=== PATIENT | female | born 1985 | race Caucasian/White ===

== ENCOUNTER 2016-05-03 10:56 | Emergency (ER) | payer BC ==
[2016-05-03 11:55] VITALS: BP 99/69
--- NOTE | 2016-05-03 12:36 | UC ---
Dizzy HPI HPI Summary: "Room spinning sensation when patient changes from a sitting to standing position, feels that the room is moving. Has experienced vertigo once in the past, feels nauseated when she experiences this sensation. Denies feeling light- headed. - History Of Current Complaint Chief Complaint: UCGeneralIllness Stated Complaint: DIZZY WHEN MOVING HEAD Time Seen by Provider: 05/03/16 12:19 Hx Obtained From: Patient Hx Last Menstrual Period: 04/20/16 ?: No Onset/Duration: Sudden Onset Timing: Constant Severity Initially: Mild Severity Currently: None Character: Head Spinning, Room Spinning, Dizzy Aggravating Factor(s): Position Change, Change In Head Position Alleviating Factor(s): Rest, Turning Head Associated Signs And Symptoms: Positive: Nausea, Vomiting, Unsteady Gait. Negative: Tinnitus, Chest Pain, SOB, Palpitations, Visual Changes - Risk Factors Cardiac Risk Factors: Negative CVA Risk Factor: Negative - Allergies/Home Medications Allergies/Adverse Reactions: Allergies Allergy/AdvReac Type Severity Reaction Status Date / Time No Known Allergies Allergy Verified 05/03/16 11:55 PMH/Surg Hx/FS Hx/Imm Hx Previously Healthy: Yes Endocrine History Of: Denies: Diabetes, Thyroid Disease, Hyperthyroidism, Hypothyroidism, Dyslipidemia Cardiovascular History Of: Denies: Cardiac Disorders, Hypertension, Pacemaker/ICD, Myocardial Infarction , Congestive Heart Failure, Atrial Fibrillation, Deep Vein Thrombosis, Bleeding Disorders Respiratory History Of: Denies: COPD, Asthma, Bronchitis, Pneumonia, Pulmonary Embolism GI/ History Of: Denies: Gastroesophageal Reflux, Ulcer, Gastrointestinal Bleed, Gall Bladder Disease, Kidney Stones, Diverticulitis, Renal Disease, Urosepsis Neurological History Of: Denies: TIA, CVA, Dementia, Seizures, Migraine Psychological History Of: Denies: Anxiety, Depression, Bipolar Disorder, Schizophrenia, Post Traumatic Stress Disorder - Surgical History Surgical History: None - Family History Known Family History: Positive: Diabetes - Paternal grandfather - Social History Occupation: Employed Full-time - [employer] Lives: With Family Alcohol Use: None Substance Use Type: None Smoking Status (MU): Never Smoked Tobacco Have You Smoked in the Last Year: No Review of Systems Constitutional: Negative Skin: Negative ENT: Negative Respiratory: Negative Cardiovascular: Negative Gastrointestinal: Negative Genitourinary: Negative Motor: Negative Musculoskeletal: Negative Neurological: Other - Positional vertigo Psychological: Negative All Other Systems Reviewed And Are Negative: Yes Physical Exam Triage Information Reviewed: Yes Appearance: Well-Appearing Vital Signs: Initial Vital Signs Temp 98.2 F 05/03/16 11:52 Pulse 59 05/03/16 11:52 Resp 14 05/03/16 11:52 BP 99/69 05/03/16 11:52 Pulse Ox 100 05/03/16 11:52 Vital Signs Reviewed: Yes Eye Exam: Normal ENT: Positive: Hearing grossly normal, Pharynx normal, TMs normal, Other: - Nystagmus induced with peripheral extraoccular movements, resolved when patient looks forward. Negative: Nasal congestion, Nasal drainage Neck exam: Normal Neck: Positive: Supple, Nontender, No Lymphadenopathy Respiratory: Positive: Chest non-tender, Lungs clear, Normal breath sounds Cardiovascular Exam: Normal Cardiovascular: Positive: RRR, No Murmur, Pulses Normal, Brisk Capillary Refill Abdomen Description: Positive: Nontender, No Organomegaly, Soft Bowel Sounds: Positive: Present Musculoskeletal Exam: Normal Musculoskeletal: Positive: Strength Intact, ROM Intact Neurological: Positive: Alert, Other: - Positive [place]omberg Psychological Exam: Normal Skin Exam: Normal Dizzy Course/Dx - Course Course Of Treatment: As discussed, seek immediate medical attention for any red flag symptoms - Differential Dx/Diagnosis Provider Diagnoses: Benign Paroxysmal Positional Veritigo Discharge - Discharge Plan Condition: Stable Disposition: HOME Prescriptions: Meclizine HCl [Meclizine 25] 25 mg PO Q6HR #20 tab Patient Education Materials: Benign Paroxysmal Positional Vertigo (ED) Forms: *Work Release
== END 2016-05-03 12:42 | disposition home or self-care (01) ==
LOC: UCEAST 10:56
DX: H81.10 Benign paroxysmal vertigo, unspecified ear (principal); R11.0 Nausea
CPT/HCPCS: 99212; G0463

== ENCOUNTER 2016-07-06 10:53 | Emergency (ER) | payer BC ==
[2016-07-06 11:33] VITALS: BP 108/63
--- NOTE | 2016-07-06 11:49 | UC ---
UC General HPI - HPI Summary HPI Summary: Patient has had sore thraot, fever, body aches, back aches, joints hurt all over for the past 2 days. - History of Current Complaint Chief Complaint: UCRespiratory Stated Complaint: SORE THROAT FEVER Time Seen by Provider: 07/06/16 11:35 Hx Obtained From: Patient Onset/Duration: Sudden Onset, Lasting Days Timing: Constant Onset Severity: Moderate Current Severity: Severe Associated Signs & Symptoms: Positive: Back Pain, Cough, Fever, Headache, Other - joint pain - Allergy/Home Medications Allergies/Adverse Reactions: Allergies Allergy/AdvReac Type Severity Reaction Status Date / Time No Known Allergies Allergy Verified 07/06/16 11:28 PMH/Surg Hx/FS Hx/Imm Hx Previously Healthy: Yes Endocrine History Of: Denies: Diabetes, Thyroid Disease, Hyperthyroidism, Hypothyroidism, Dyslipidemia Cardiovascular History Of: Denies: Cardiac Disorders, Hypertension, Pacemaker/ICD, Myocardial Infarction , Congestive Heart Failure, Atrial Fibrillation, Deep Vein Thrombosis, Bleeding Disorders Respiratory History Of: Denies: COPD, Asthma, Bronchitis, Pneumonia, Pulmonary Embolism GI/ History Of: Denies: Gastroesophageal Reflux, Ulcer, Gastrointestinal Bleed, Gall Bladder Disease, Kidney Stones, Diverticulitis, Renal Disease, Urosepsis Neurological History Of: Denies: TIA, CVA, Dementia, Seizures, Migraine Psychological History Of: Denies: Anxiety, Depression, Bipolar Disorder, Schizophrenia, Post Traumatic Stress Disorder - Surgical History Surgical History: None - Family History Known Family History: Positive: Diabetes - Paternal grandfather - Social History Alcohol Use: None Substance Use Type: None Smoking Status (MU): Never Smoked Tobacco Have You Smoked in the Last Year: No - Immunization History Most Recent Influenza Vaccination: NONE Most Recent Tetanus Shot: UTD Most Recent Pneumonia Vaccination: N/A Review of Systems Constitutional: Fever, Chills, Fatigue Skin: Negative Eyes: Negative ENT: Sore Throat, Ear Ache Respiratory: Cough Cardiovascular: Negative Gastrointestinal: Negative Genitourinary: Negative Motor: Negative Neurovascular: Negative Musculoskeletal: Arthralgia, Myalgia Neurological: Headache Psychological: Negative All Other Systems Reviewed And Are Negative: Yes Physical Exam Triage Information Reviewed: Yes Appearance: Well-Nourished, Ill-Appearing, Pain Distress Vital Signs: Initial Vital Signs Temp 98.5 F 07/06/16 11:28 Pulse 91 07/06/16 11:28 Resp 18 07/06/16 11:28 BP 108/63 07/06/16 11:28 Pulse Ox 99 07/06/16 11:28 Vital Signs Reviewed: Yes Eye Exam: Normal Eyes: Positive: Conjunctiva Clear ENT: Positive: Pharyngeal erythema, TM bulging, Tonsillar swelling, Tonsillar exudate Dental Exam: Normal Dental: Positive: Cervical Lymphadenopathy Neck exam: Normal Neck: Positive: Supple, Nontender, Enlarged Nodes @ - cervical bilateral Respiratory Exam: Normal Respiratory: Positive: Chest non-tender, No respiratory distress, No accessory muscle use, Wheezing, Inspiration Cardiovascular Exam: Normal Cardiovascular: Positive: RRR, No Murmur, Pulses Normal Abdominal Exam: Normal Abdomen Description: Positive: Nontender, No Organomegaly, Soft Bowel Sounds: Positive: Present Musculoskeletal Exam: Normal Musculoskeletal: Positive: Strength Intact, ROM Intact, No Edema Neurological Exam: Normal Neurological: Positive: Alert, Muscle Tone Normal Psychological Exam: Normal Skin Exam: Normal Course/Dx - Course Course Of Treatment: hx obtained, exam performed, meds reviewed, rapid strep positive, rapid flu,. treated for cough, strep throat, - Differential Dx - Multi-Symptom Provider Diagnoses: Strep pharynigitis. wheezing. myalgia. fever Discharge - Discharge Plan Condition: Stable Disposition: HOME Prescriptions: Amoxicillin/Clavulanate TAB* [Augmentin TAB 875*] 875 mg PO BID #20 tab guaiFENesin/CODIEN 100MG-10MG* [Robitussin AC 100Mg-10Mg*] 5 ml PO BID #100 ml MDD 10 ml predniSONE TAB* [Deltasone TAB*] 20 mg PO DAILY #5 tab Patient Education Materials: Strep Throat (ED) Forms: *Work Release Referrals: No Primary Care Phys,NOPCP [Primary Care Provider] - Additional Instructions: Get plenty of rest, Increase fluid intake, Take the medication as prescribed. Follow up with any worsening symtpoms.
== END 2016-07-06 12:05 | disposition home or self-care (01) ==
LOC: UCEAST 10:53
DX: J02.0 Streptococcal pharyngitis (principal); R06.2 Wheezing; M79.1 Myalgia; R50.9 Fever, unspecified
CPT/HCPCS: 87502; 87651; 99212; G0463

== ENCOUNTER 2017-02-28 10:48 | Emergency (ER) | payer BC ==
[2017-02-28 13:03] VITALS: BP 123/66
--- NOTE | 2017-02-28 13:24 | UC ---
Throat Pain/Nasal Alexander HPI - HPI Summary HPI Summary: 31F presents with sore throat for two days. She has a history of strept about 6 months ago. She states pain is greatest on left side of throat. She admits to fever. She states ibuprofen helps with the swelling. she is still able to swallow she just has pain with such. She denies any nausea, vomiting, abdominal pain, fatigue. She admits to sinus congestion. She states pain radiates up to her ears. - History of Current Complaint Chief Complaint: UCRespiratory Stated Complaint: THROAT PAIN Time Seen by Provider: 02/28/17 13:13 Hx Last Menstrual Period: 01/08/17 - Allergies/Home Medications Allergies/Adverse Reactions: Allergies Allergy/AdvReac Type Severity Reaction Status Date / Time No Known Allergies Allergy Verified 02/28/17 13:03 Home Medications: Home Medications Ibuprofen [Ibuprofen 200 MG] 2 tab PO Q6H PRN 02/28/17 [History Confirmed ] PMH/Surg Hx/FS Hx/Imm Hx Endocrine History: Other Other Endocrine History: no DM Respiratory History: Other Other Respiratory History: no asthma - Surgical History Surgical History: None - Family History Known Family History: Positive: Diabetes - Paternal grandfather - Social History Alcohol Use: None Substance Use Type: None Smoking Status (MU): Never Smoked Tobacco Have You Smoked in the Last Year: No - Immunization History Most Recent Influenza Vaccination: unknown Most Recent Tetanus Shot: UTD Most Recent Pneumonia Vaccination: N/A Review of Systems Constitutional: Fever ENT: Sore Throat All Other Systems Reviewed And Are Negative: Yes Physical Exam Triage Information Reviewed: Yes Appearance: Well-Appearing Vital Signs: Initial Vital Signs Temp 99.2 F 02/28/17 13:00 Pulse 84 02/28/17 13:00 Resp 16 02/28/17 13:00 BP 123/66 02/28/17 13:00 Pulse Ox 100 02/28/17 13:00 Vital Signs Reviewed: Yes Eyes: Positive: Conjunctiva Clear ENT: Positive: Normal ENT inspection, Pharyngeal erythema, TMs normal, Tonsillar swelling, Hoarse voice, Uvula midline, Other - soft palate symmetric. Negative: Tonsillar exudate, Trismus, Muffled voice Neck: Positive: Supple, Enlarged Nodes @ - left anterior cervical chain Respiratory: Positive: Lungs clear, Normal breath sounds Cardiovascular: Positive: RRR Abdomen Description: Positive: Nontender, Soft Bowel Sounds: Positive: Present Musculoskeletal Exam: Normal Neurological Exam: Normal Psychological Exam: Normal Skin Exam: Normal Throat Pain/Nasal Course/Dx - Course Course Of Treatment: 31F presents with sore throat for two days. She has a history of strept about 6 months ago. She states pain is greatest on left side of throat. She admits to fever. She states ibuprofen helps with the swelling. she is still able to swallow she just has pain with such. She denies any nausea , vomiting, abdominal pain, fatigue. She admits to sinus congestion. She states pain radiates up to her ears. on exam uvula midline, soft palate symmetric, tonsils+2. left side anterior cervical lymphadenopathy. strept pos. will treat with amoxicillin and decadron for swelling. patient understand and agrees with plan. - Differential Dx/Diagnosis Differential Diagnosis/HQI/PQRI: Pharyngitis, Tonsillitis, URI Provider Diagnoses: strept throat Discharge - Discharge Plan Condition: Good Disposition: HOME Prescriptions: Amoxicillin PO (*) [Amoxicillin 500 MG CAP*] 500 mg PO Q12H #20 cap Dexamethasone TAB* [Decadron TAB*] 4 mg PO DAILY #5 tab Patient Education Materials: Strep Throat (ED) Forms: *Work Release Referrals: [facility] [place] [facility] [Outside] Additional Instructions: Take antibiotic twice a day for 10 days Take steroid once a day for 5 days Take Tylenol or ibuprofen for pain/fever every 6 hours Can gargle salt water, use cough drops or products such as cloraseptic spray for pain Return to ED if develop difficulty breathing or unable to manage secretions, any new or worsening symptoms
== END 2017-02-28 13:30 | disposition home or self-care (01) ==
LOC: UCEAST 10:48
DX: J02.0 Streptococcal pharyngitis (principal)
CPT/HCPCS: 87651; 99212; G0463